=== PATIENT | male | born 1955 | race Caucasian/White ===

== ENCOUNTER 2018-09-17 15:21 | Emergency (ER) | payer MEDICARE, OTHER ==
--- NOTE | 2018-09-17 16:13 | RAD ---
LEFT HIP 2 VIEWS: HISTORY: Trauma, left hip pain. FINDINGS: Degenerative changes are present. No acute fracture or dislocation is identified. If there is high clinical suspicion for a left hip fracture, further evaluation with CT scan should b e performed. POS: OFF
== END 2018-09-17 16:15 | disposition home or self-care (01) ==
LOC: MADERS 15:21
DX: M25.552 Pain in left hip (principal); E11.9 Type 2 diabetes mellitus without complications; E03.9 Hypothyroidism, unspecified; I10 Essential (primary) hypertension; M10.9 Gout, unspecified; Z79.899 Other long term (current) drug therapy

== ENCOUNTER 2020-11-12 20:02 | Emergency (ER) | payer MEDICARE, OTHER ==
[2020-11-12 20:29] LABS: Bilirubin Negative (Negative); Blood, Urine Large (Negative); Clarity Cloudy (Clear); Glucose, Urine (Dipstick) Negative (Negative); Ketone, Urine Trace mg/dL (Negative); Leukocyte Trace (Negative); Nitrite Negative (Negative); Protein, Urine (Dipstick) 100 mg/dL (Neg-Trace)
[2020-11-12] MEDS ORDERED: cefTRIAXone\\ROCEPHIN 1 GM VIAL ONE (20:32)
[2020-11-12] MEDS ORDERED: Sodium Chloride 0.9% 100 ML ONE (20:32)
[2020-11-12] MEDS ORDERED: Sodium Chloride 0.9% 1,000 ML ONE ×2 (20:32→22:21)
[2020-11-12] MEDS ORDERED: Morphine 4 MG/ML VIAL ONE (20:32)
[2020-11-12 20:34] LABS: RBC/HPF Greater than 50 HPF (0-3)
[2020-11-12 20:35] LABS: Bacteria/HPF Rare-Few HPF (None Seen); Mucous/LPF 2+ LPF (<2+)
[2020-11-12 21:00] LABS: #Basophils 0.1 thou/uL (0.0-0.2); #Eosinphils 0.1 thou/uL (0.0-0.7); #Lymphocytes 1.2 thou/uL (1.20-3.40); #Monocytes 0.7 thou/uL (0.11-0.59); #Neutrophils 12.1 thou/uL (1.40-6.50); %Basophils 0.5 % (0.0-1.0); %Eosinophils 0.8 % (0.0-10.0); %Lymphocytes 8.5 % (21.0-51.0); %Monocytes 4.9 % (0.0-10.0); %Neutrophils 85.3 % (42.0-75.0); Hemoglobin 15.9 g/dL (14.0-18.0); Mean Corpuscular HGB CONC 32.5 g/dL (32.0-36.0); Mean Corpuscular Hemoglobin 30.5 pg (27.0-31.0); Mean Corpuscular Volume 93.6 fL (78.0-98.0); Mean Platelet Volume 11.2 fL (7.4-10.4); Platelet Count 186 thou/uL (130-400); RBC Distribution Width 13.6 % (11.5-14.5); Red Blood Cell (RBC) Count 5.21 mill/uL (4.70-6.10); White Blood Cell (WBC) Count 14.2 thou/uL (4.8-10.8)
--- NOTE | 2020-11-12 21:04 | CT ---
CT ABDOMEN AND PELVIS PERFORMED WITHOUT CONTRAST ENHANCEMENT: 11/12/20 HISTORY: Left flank pain. History of kidney stones. COMPARISON: A 03/27/2009 exam. The lung bases are clear of any infiltrative process. The liver, spleen, pancreas, and gallbladder regions all appear unremarkable. A right adrenal nodule is present, it appears fairly similar to the previous exam. Minimally increase d in size from approximately 14 to [address] Hounsfield unit numbers that would be suggestive of an adenoma. The left adrenal is normal. The right and left kidneys are normal in size and not obst ructed. Bilateral renal calculi are seen. hyperdense exophytic lesion involving the left kidney is mo st compatible with a small hemorrhagic cyst. There is a proximal left ureteral calculus located near the left ureterovesical junction. This measures in the 5 mm range. Associated with minimal dilatation of the left collecting system. No additional ureteral calculi. No significant periaortic or mesenter ic adenopathy. CT OF PELVIS PERFORMED WITHOUT CONTRAST ENHANCEMENT: Sigmoid diverticulosis is noted. There is some mild wall thickening to the rectum. In reviewing the p revious 2008 exam, it is fairly similar to that study. The appendix is normal. No pelvic lymphadenopa thy. IMPRESSION: 1. Bilateral renal calculi with a 4 to 5 mm left ureteropelvic junction calculus associated with very mild left sided hydronephrosis. 2. Right adrenal adenoma. 3. Probable hemorrhagic cyst involving the posterior cortex of the left kidney. 4. Diverticulosis. POS: OFF
[2020-11-12 21:12] LABS: ALT (SGPT) 28 U/L (8-55); AST (SGOT) 20 U/L (5-34); Albumin 4.2 g/dL (3.4-4.8); Alkaline Phosphatase 68 U/L (40-110); Anion Gap 13 mmol/L (10-20); BUN (Urea Nitrogen) 16 mg/dL (8.4-25.7); Bilirubin, Total 0.4 mg/dL (0.2-1.2); Calc. Creatinine Clearance 0 mL/min (70-130); Calcium 9.4 mg/dL (7.8-10.44); Carbon Dioxide 25 mmol/L (23-31); Chloride 108 mmol/L (98-107); Globulin 2.9 g/dL (2.4-3.5); Glucose 193 mg/dL (80-115); Potassium 4.2 mmol/L (3.5-5.1); Protein, Total 7.1 g/dL (5.8-8.1); Sodium 142 mmol/L (136-145)
[2020-11-12] MEDS ORDERED: Tamsulosin HCl 0.4 MG CAP ONE (22:21)
== END 2020-11-12 23:42 | disposition home or self-care (01) ==
LOC: MADERS 20:02
DX: N13.2 Hydronephrosis with renal and ureteral calculous obstruction (principal); N39.0 Urinary tract infection, site not specified; E11.39 Type 2 diabetes mellitus with other diabetic ophthalmic complication; H42 Glaucoma in diseases classified elsewhere; E03.9 Hypothyroidism, unspecified; M10.9 Gout, unspecified
CPT/HCPCS: 74176; 80053; 81003; 81015; 85025; 96365; 96375; J0696; J2270; J3490; J7050